=== PATIENT | female | born 1965 | race African-American/Black ===

== ENCOUNTER 2016-06-23 08:49 | Inpatient (IN) | payer MEDICARE, MEDICAID ==
[~2016-06-23] VITALS: Ht 144.8 cm; Wt 97.1 kg
[2016-06-23] MEDS ORDERED: METHYLPREDNISOLONE SOD SUCC 125 MG/2 ML VIAL IV STA (08:56)
[2016-06-23] MEDS ORDERED: MAGNESIUM 2 G PREMIX 50 ML IV STA (08:56)
[2016-06-23] MEDS ORDERED: IPRATROPIUM BROMIDE (0.02%) 0.5MG/2.5ML NEB HHN STA ×2 (08:56→12:44)
[2016-06-23] MEDS ORDERED: ALBUTEROL (0.083%) 2.5MG/3ML NEB HHN STA ×2 (08:56→12:44)
[2016-06-23 12:13] LABS: HEMATOCRIT. 25.8 % (36.0-48.0); MEAN CORPUSCULAR HEMOGLOBIN 21.7 pg (28.0-32.0); MEAN CORPUSCULAR HGB CONC 30.9 g/dL (31.0-37.0); MEAN CORPUSCULAR VOLUME 70.3 fL (81.0-99.0); MEAN PLATELET VOLUME 7.3 fl (7.4-10.4); RED BLOOD CELL COUNT 3.67 mill/uL (4.2-5.4); RED CELL DISTRIBUTION WIDTH 17.9 % (11.6-14.6); WHITE BLOOD COUNT 16.7 x1000/uL (4.5-11.0)
[2016-06-23 12:17] LABS: DIFFERENTIAL COMMENT 1
[2016-06-23 12:30] LABS: ALANINE AMINOTRANSFERASE 27 IU/L (13-61); ALBUMIN 3.3 g/dL (3.4-5.0); ANION GAP 15; CALCIUM 8.9 mg/dL (8.5-10.1); CARBON DIOXIDE 27 mEq/L (21-32); CHLORIDE 99 mEq/L (98-107); INDEX HEMOLYSI 2 (1-3); INDEX ICTERIC 1 (1-4); INDEX LIPEMIC 2 (1-3); TROPONIN I < 0.02 ng/mL (0.00-0.04); UREA NITROGEN BLOOD 14 mg/dL (7-21); eGFR 57 mL/min (>60)
[2016-06-23 12:49] LABS: PLATELET ESTIMATE INCREASED
[2016-06-23 12:55] LABS: GIANT PLATELETS FEW
[2016-06-23 12:57] LABS: PLATELET 624 x1000/uL (130-400)
[2016-06-23] MEDS ORDERED: IPRATROPIUM/ALBUTEROL 0.5-3(2.5)MG/3ML NEB INH PRN (16:30)
[2016-06-23] MEDS ORDERED: LORAZEPAM 2MG/ML CPJ IV PRN (16:30)
[2016-06-23] MEDS ORDERED: GUAIFENESIN 200MG/10ML SUGAR FREE UDC PO PRN (16:30)
[2016-06-23] MEDS ORDERED: DOCUSATE SODIUM 100MG CAPSULE PO PRN (16:30)
[2016-06-23] MEDS ORDERED: NITROGLYCERIN 0.4MG TABLET SL SL PRN (16:30)
[2016-06-23] MEDS ORDERED: NA PHOS,M-B/NA PHOS,DI-BA ENEMA 118ML PR PRN (16:30)
[2016-06-23] MEDS ORDERED: ZOLPIDEM TARTRATE 5MG TABLET PO PRN (16:30)
[2016-06-23] MEDS ORDERED: CLONIDINE 0.1MG TABLET PO PRN (16:30)
[2016-06-23] MEDS ORDERED: TRAMADOL 50MG TABLET PO PRN (16:30)
[2016-06-23] MEDS ORDERED: ONDANSETRON HCL 4MG/2ML VIAL IV PRN (16:30)
[2016-06-23] MEDS ORDERED: MAGNESIUM/ALUMINUM HYDROXIDE/SIMETHICONE 30ML UDC PO PRN (16:30)
[2016-06-23] MEDS ORDERED: MORPHINE SULFATE 2 MG/ML CPJ (NOT FOR IM USE) IV PRN (16:30)
[2016-06-23] MEDS ORDERED: DIPHENHYDRAMINE 50MG/ML VIAL IV PRN (16:30)
[2016-06-23] MEDS: IPRATROPIUM/ALBUTEROL 0.5-3(2.5)MG/3ML NEB HHN SCH ×2 (18:20→21:34)
[2016-06-23] MEDS ORDERED: KCL 20MEQ/100ML PREMIX 100 ML IV NR (20:00)
[2016-06-23] MEDS ORDERED: POTASSIUM CHLORIDE 20MEQ TABLET SR PO NR (20:00)
[2016-06-23] MEDS ORDERED: DEXTROSE 50% WATER 50ML SYRINGE IV PRN (20:00)
[2016-06-23 22:30] VITALS: BP 108/84
[2016-06-23] MEDS: BLOOD SUGAR DIAGNOSTIC STRIP TEST SCH (23:04)
[2016-06-23] MEDS: INSULIN LISPRO 100 UNITS/ML SUBCUT SCH (23:12)
[2016-06-23] MEDS: METHYLPREDNISOLONE SOD SUCC 125 MG/2 ML VIAL IV SCH (23:20)
[2016-06-23 23:35] VITALS: BP 108/84
[2016-06-24] MEDS: IPRATROPIUM/ALBUTEROL 0.5-3(2.5)MG/3ML NEB HHN SCH ×7 (00:05→23:54)
[2016-06-24] MEDS ORDERED: LEVOFLOXACIN 500MG PREMIX 100 ML IV SCH (01:00)
[2016-06-24] MEDS ORDERED: HYDR25TA PO (01:18)
[2016-06-24] MEDS ORDERED: INSLAN SQ (01:18)
[2016-06-24] MEDS ORDERED: LANS30CA10 PO (01:18)
[2016-06-24] MEDS ORDERED: BALS750C7 PO (01:18)
[2016-06-24] MEDS ORDERED: THEO80SO PO (01:18)
[2016-06-24] MEDS ORDERED: PROC10TA PO (01:18)
[2016-06-24] MEDS ORDERED: PRED-276 PO (01:18)
[2016-06-24] MEDS ORDERED: PRO AIR (01:18)
[2016-06-24] MEDS ORDERED: VALA500T PO (01:18)
[2016-06-24 02:44] LABS: CREATINE KINASE 354 IU/L (26-192); CREATINE KINASE MB FRACTION 3.8 ng/mL (0.5-3.6); INDEX HEMOLYSI 2 (1-3); INDEX ICTERIC 1 (1-4); INDEX LIPEMIC 1 (1-3); IRON 32 ug/dL (50-175); TOTAL IRON BINDING CAPACITY 586 ug/dL (250-450); TROPONIN I < 0.02 ng/mL (0.00-0.04)
[2016-06-24 02:54] LABS: INDEX HEMOLYSI 1 (1-3)
[2016-06-24 03:09] LABS: VITAMIN B12 SERUM 886 pg/mL (211-911)
[2016-06-24 04:00] VITALS: BP 107/69
[2016-06-24 04:21] LABS: FOLIC ACID (FOLATE) SERUM > 20.00 ng/mL (>5.38)
[2016-06-24] MEDS: ACETAMINOPHEN 325MG TABLET PO PRN (04:32)
[2016-06-24] MEDS: CARVEDILOL 3.125 MG TABLET PO SCH ×2 (06:00→18:00)
[2016-06-24] MEDS: BLOOD SUGAR DIAGNOSTIC STRIP TEST SCH ×4 (06:53→21:00)
[2016-06-24] MEDS: INSULIN LISPRO 100 UNITS/ML SUBCUT SCH ×4 (06:57→21:10)
[2016-06-24] MEDS: METHYLPREDNISOLONE SOD SUCC 125 MG/2 ML VIAL IV SCH (07:03)
[2016-06-24] MEDS ORDERED: BLOOD SUGAR DIAGNOSTIC STRIP TEST SCH (07:10)
[2016-06-24 08:00] VITALS: BP 120/74
[2016-06-24] MEDS: PANTOPRAZOLE SODIUM 40 MG/VIAL IV SCH (08:35)
[2016-06-24] MEDS: ZINC SULFATE 220 MG ( 50 ) CAPSULE PO SCH (08:35)
[2016-06-24] MEDS: ENOXAPARIN 30MG/0.3ML SYR SUBCUT SCH ×2 (08:37→21:11)
[2016-06-24 09:29] LABS: CREATINE KINASE 385 IU/L (26-192); CREATINE KINASE MB FRACTION 3.8 ng/mL (0.5-3.6); INDEX HEMOLYSI 1 (1-3); TROPONIN I < 0.02 ng/mL (0.00-0.04)
[2016-06-24 12:00] VITALS: BP 113/79
[2016-06-24 15:44] LABS: BASOPHILS % 0.2 % (0.0-2.0); DIFFERENTIAL COMMENT 0; HEMATOCRIT. 23.7 % (36.0-48.0); HEMOGLOBIN. 7.1 g/dL (12.0-16.0); MEAN CORPUSCULAR HEMOGLOBIN 21.2 pg (28.0-32.0); MEAN CORPUSCULAR HGB CONC 30.1 g/dL (31.0-37.0); MEAN CORPUSCULAR VOLUME 70.4 fL (81.0-99.0); MEAN PLATELET VOLUME 7.5 fl (7.4-10.4); MONOCYTES % 3.4 % (2.0-8.0); NEUTROPHILS % 87.4 % (40.0-76.0); PLATELET 636 x1000/uL (130-400); RED BLOOD CELL COUNT 3.37 mill/uL (4.2-5.4); WHITE BLOOD COUNT 18.3 x1000/uL (4.5-11.0)
[2016-06-24 16:00] VITALS: BP 108/72
[2016-06-24 16:00] LABS: LACTIC ACID 3.3 mmol/L (0.4-2.0)
[2016-06-24 16:04] LABS: ALANINE AMINOTRANSFERASE 25 IU/L (13-61); ALBUMIN 3.7 g/dL (3.4-5.0); ANION GAP 18; CARBON DIOXIDE 24 mEq/L (21-32); CHLORIDE 95 mEq/L (98-107); INDEX HEMOLYSI 1 (1-3); INDEX ICTERIC 1 (1-4); INDEX LIPEMIC 1 (1-3); NT PRO B-TYPE NATRIURETIC PEP 405 pg/mL (5-125); UREA NITROGEN BLOOD 29 mg/dL (7-21); eGFR 52 mL/min (>60)
[2016-06-24] MEDS: METHYLPREDNISOLONE SOD SUCC 40 MG/ML VIAL IV SCH (17:57)
[2016-06-24] MEDS: INSULIN NPH (HUMULIN-N) 100 UNITS/ML 3ML VIAL SUBCUT SCH (18:16)
[2016-06-24] MEDS ORDERED: VENOFER IV SCH ×2 (19:30→21:00)
[2016-06-24 20:00] VITALS: BP 110/78
[2016-06-24] MEDS: IRON SUCROSE COMPLEX 100 MG/5 ML ML IV SCH (21:12)
[2016-06-25] VITALS: BP 114/76
[2016-06-25] MEDS: LEVOFLOXACIN 500MG PREMIX 100 ML IV SCH (01:30)
[2016-06-25] MEDS: METHYLPREDNISOLONE SOD SUCC 40 MG/ML VIAL IV SCH ×3 (02:15→17:05)
[2016-06-25] MEDS: INSULIN NPH (HUMULIN-N) 100 UNITS/ML 3ML VIAL SUBCUT SCH ×3 (02:17→17:08)
[2016-06-25] MEDS: IPRATROPIUM/ALBUTEROL 0.5-3(2.5)MG/3ML NEB HHN SCH ×4 (03:56→21:54)
[2016-06-25 04:00] VITALS: BP 112/68
[2016-06-25] MEDS: ACETAMINOPHEN 325MG TABLET PO PRN ×2 (04:38→17:12)
[2016-06-25] MEDS: CARVEDILOL 3.125 MG TABLET PO SCH ×2 (05:45→17:06)
[2016-06-25] MEDS: BLOOD SUGAR DIAGNOSTIC STRIP TEST SCH ×4 (05:51→21:09)
[2016-06-25] MEDS: INSULIN LISPRO 100 UNITS/ML SUBCUT SCH ×4 (06:27→20:59)
[2016-06-25 08:00] VITALS: BP 106/72
[2016-06-25] MEDS: PANTOPRAZOLE SODIUM 40 MG/VIAL IV SCH (08:15)
[2016-06-25] MEDS: IRON SUCROSE COMPLEX 100 MG/5 ML ML IV SCH (08:15)
[2016-06-25] MEDS: ZINC SULFATE 220 MG ( 50 ) CAPSULE PO SCH (08:15)
[2016-06-25] MEDS: ENOXAPARIN 30MG/0.3ML SYR SUBCUT SCH ×2 (08:16→20:52)
[2016-06-25] MEDS ORDERED: PREDNISONE 20MG TABLET PO SCH (09:00)
[2016-06-25] MEDS ORDERED: INSULIN NPH (HUMULIN-N) 100 UNITS/ML 3ML VIAL SUBCUT NR (09:52)
[2016-06-25 12:00] VITALS: BP 105/67
[2016-06-25 16:00] VITALS: BP 117/80
[2016-06-25 20:00] VITALS: BP 114/76
[2016-06-26] VITALS: BP 115/81
[2016-06-26] MEDS: IPRATROPIUM/ALBUTEROL 0.5-3(2.5)MG/3ML NEB HHN SCH ×5 (00:15→17:20)
[2016-06-26] MEDS: METHYLPREDNISOLONE SOD SUCC 40 MG/ML VIAL IV SCH ×3 (01:40→17:04)
[2016-06-26] MEDS: INSULIN NPH (HUMULIN-N) 100 UNITS/ML 3ML VIAL SUBCUT SCH ×3 (01:49→17:02)
[2016-06-26] MEDS: LEVOFLOXACIN 500MG PREMIX 100 ML IV SCH (01:52)
[2016-06-26] MEDS: ACETAMINOPHEN 325MG TABLET PO PRN (02:02)
[2016-06-26 04:00] VITALS: BP 119/82
[2016-06-26] MEDS: CARVEDILOL 3.125 MG TABLET PO SCH ×2 (05:19→17:04)
[2016-06-26] MEDS: BLOOD SUGAR DIAGNOSTIC STRIP TEST SCH ×3 (06:30→17:00)
[2016-06-26] MEDS: INSULIN LISPRO 100 UNITS/ML SUBCUT SCH ×3 (06:49→17:03)
[2016-06-26 08:00] VITALS: BP 113/78
[2016-06-26] MEDS: ENOXAPARIN 30MG/0.3ML SYR SUBCUT SCH (08:25)
[2016-06-26] MEDS: PANTOPRAZOLE SODIUM 40 MG/VIAL IV SCH (08:25)
[2016-06-26] MEDS: ZINC SULFATE 220 MG ( 50 ) CAPSULE PO SCH (08:26)
[2016-06-26 09:47] LABS: HEMATOCRIT 24.7 % (36.0-48.0); PLATELET 829 x1000/uL (130-400); RED BLOOD CELL COUNT 3.48 mill/uL (4.2-5.4); RED CELL DISTRIBUTION WIDTH 18.2 % (11.6-14.6)
[2016-06-26 10:43] LABS: HEMOGLOBIN 7.3 g/dL (12.0-16.0)
[2016-06-26 12:00] VITALS: BP 115/75
[2016-06-26] MEDS ORDERED: IRON SUCROSE COMPLEX 100 MG/5 ML ML IV SCH (12:30)
[2016-06-26 15:47] VITALS: BP 119/78
[2016-06-26 15:54] VITALS: BP 119/80
[2016-06-27] MEDS ORDERED: FAMOTIDINE 20MG TABLET PO SCH (09:00)
== END 2016-06-26 18:10 | disposition home or self-care (01) | DRG 189 ==
LOC: ER 08:54 → 8WST 13:37 → SUPCPDRO 15:45
PROVIDERS: ADMIT Internal Medicine; ATTEND Internal Medicine
DX: J96.00 Acute respiratory failure, unspecified whether with hypoxia or hypercapnia (principal); J44.1 Chronic obstructive pulmonary disease with (acute) exacerbation; K50.90 Crohn's disease, unspecified, without complications; K51.90 Ulcerative colitis, unspecified, without complications; E44.1 Mild protein-calorie malnutrition; E66.2 Morbid (severe) obesity with alveolar hypoventilation; J45.901 Unspecified asthma with (acute) exacerbation; Z68.42 Body mass index [BMI] 45.0-49.9, adult; D50.9 Iron deficiency anemia, unspecified; D72.829 Elevated white blood cell count, unspecified; E11.65 Type 2 diabetes mellitus with hyperglycemia; E87.6 Hypokalemia; G43.909 Migraine, unspecified, not intractable, without status migrainosus; G47.33 Obstructive sleep apnea (adult) (pediatric); I50.9 Heart failure, unspecified; M06.9 Rheumatoid arthritis, unspecified; L83 Acanthosis nigricans; M10.9 Gout, unspecified; M48.00 Spinal stenosis, site unspecified; Z79.4 Long term (current) use of insulin; Z79.52 Long term (current) use of systemic steroids; Z82.5 Family history of asthma and other chronic lower respiratory diseases; Z90.10 Acquired absence of unspecified breast and nipple; Z85.3 Personal history of malignant neoplasm of breast; Z91.011 Allergy to milk products; Z91.013 Allergy to seafood; Z91.018 Allergy to other foods
CPT/HCPCS: 36415; 71010; 80053; 80061; 82270; 82550; 82553; 82607; 82746; 82962; 83036; 83540; 83550; 83605; 83880; 84484; 85025; 85027; 93005; 93306; 93970; 94640; 94644; 94660; 96365; 96366; 96375; 99285; C9113; J1650; J1815; J1956; J2920; J2930; J3475; J3480; J7040; J7050; J7611; J7620

== ENCOUNTER 2017-11-15 19:05 | Inpatient (IN) | payer MEDICARE, MEDICAID ==
[~2017-11-15] VITALS: Ht 165.1 cm; Wt 102.1 kg
[~2017-11-15 19:05] MED LIST: BALS750C7 PO; HYDR25TA PO; INSLAN SQ; LANS30CA52 PO; PRED-276 PO; PRO AIR; PROC10TA17 PO; THEO80EL3 PO; VALA500T PO
[2017-11-15] MEDS ORDERED: ALBUTEROL (0.083%) 2.5MG/3ML NEB HHN STA ×3 (19:25→21:21)
[2017-11-15] MEDS ORDERED: IPRATROPIUM BROMIDE (0.02%) 0.5MG/2.5ML NEB HHN STA (19:25)
[2017-11-15] MEDS ORDERED: METHYLPREDNISOLONE SOD SUCC 125 MG/2 ML VIAL IV ONE (19:30)
[2017-11-15] MEDS: NITROGLYCERIN 0.4MG TABLET SL SL PRN ×2 (21:21→21:55)
[2017-11-15 22:53] LABS: BG BASE EXCESS -4.2 mmol/L (-2.0-2.0); BG CARBOXYHEMOGLOBIN 0.1 % (0.5-1.5); BG FRACTION INSPIRED OXYGEN 36; BG HCO3 ACT 20.3 mmol/L (22.0-26.0); BG METHEMOGLOBIN 0.3 % (0.0-1.5); BG OXYHEMOGLOBIN 90.6 % (94.0-97.0); BG PCO2 35.3 mmHg (35.0-45.0); BG PH 7.378 (7.350-7.450); BG PO2 62.4 mmHg (75.0-100.0); BG SAMPLE SITE RIGHT RADIAL; BG TOTAL HEMOGLOBIN 10.7 g/dL (12.0-18.0); BG VENT MODE NASAL CANNULA
[2017-11-15 23:09] LABS: CLARITY URINE CLEAR (CLEAR); COLOR URINE YELLOW (YELLOW); KETONES URINE TRACE (NEGATIVE); LEUKOCYTE ESTERASE URINE NEGATIVE (NEGATIVE); NITRITE URINE NEGATIVE (NEGATIVE); OCCULT BLOOD URINE TRACE (NEGATIVE); PH URINE 5.5 (4.5-8.0); PROTEIN URINE 4+ (NEGATIVE); SPECIFIC GRAVITY URINE 1.018 (1.005-1.030)
[2017-11-15] MEDS ORDERED: LIDOCAINE HCL/PF 1% 10 MG/ML 5ML VIAL ONE (23:36)
[2017-11-16] VITALS (23 sets, daily range): BP systolic 95–129; BP diastolic 55–83
[2017-11-16 00:10] LABS: CHLORIDE 106 mEq/L (98-107)
[2017-11-16 00:13] LABS: PROTHROMBIN TIME 10.3 sec (9.4-11.6)
[2017-11-16] MEDS ORDERED: SUCCINYLCHOLINE CHLORIDE 200MG/10ML VIAL IV ONE ×2 (00:30→13:58)
[2017-11-16] MEDS ORDERED: ETOMIDATE 2MG/ML 10ML VIAL IV ONE ×2 (00:30→13:58)
[2017-11-16] MEDS ORDERED: PROPOFOL 10MG/ML 100ML 100 ML IV ONE ×2 (00:30→00:35)
[2017-11-16] MEDS ORDERED: FENTANYL CITRATE/PF 50MCG/ML 2ML VIAL IV ONE (01:30)
[2017-11-16] MEDS ORDERED: VANCOMYCIN 1 G PREMIX 200 ML IV NR (01:30)
[2017-11-16] MEDS ORDERED: PIPERACILLIN/TAZ 3.375G PREMIX 50 ML IV NR (01:30)
[2017-11-16] MEDS ORDERED: MAGNESIUM 2 G PREMIX 50 ML IV NR (01:30)
[2017-11-16] MEDS ORDERED: MIDAZOLAM HCL 50 MG in DEXTROSE 5% WATER 40 ML IV ONE (01:30)
[2017-11-16 01:33] LABS: HEMATOCRIT. 28.6 % (36.0-48.0); MEAN CORPUSCULAR HEMOGLOBIN 27.3 pg (28.0-32.0); PLATELET 357 x1000/uL (130-400); RED BLOOD CELL COUNT 3.67 mill/uL (4.2-5.4); RED CELL DISTRIBUTION WIDTH 21.9 % (11.6-14.6)
[2017-11-16 01:49] LABS: PLATELET ESTIMATE NORMAL
[2017-11-16] MEDS ORDERED: PROPOFOL 10MG/ML 100ML 100 ML IV PRN (05:00)
[2017-11-16] MEDS ORDERED: POTASSIUM CHLORIDE INJ 40 MEQ in DEXT 5% WATER 250 ML IV NR (05:15)
[2017-11-16] MEDS ORDERED: ONDANSETRON HCL 4MG/2ML VIAL IV PRN (08:30)
[2017-11-16] MEDS ORDERED: IPRATROPIUM/ALBUTEROL 0.5-3(2.5)MG/3ML NEB INH PRN (08:30)
[2017-11-16] MEDS ORDERED: ACETAMINOPHEN 325MG TABLET NG PRN (08:30)
[2017-11-16] MEDS ORDERED: VANCOMYCIN 1 G PREMIX 200 ML IV SCH (08:30)
[2017-11-16] MEDS ORDERED: PIPERACILLIN/TAZ 3.375G PREMIX 50 ML IV SCH (08:30)
[2017-11-16] MEDS ORDERED: DIPHENHYDRAMINE 50MG/ML VIAL IV PRN (08:30)
[2017-11-16] MEDS ORDERED: DEXTROSE 50% WATER 50ML SYRINGE IV PRN (08:30)
[2017-11-16] MEDS: INSULIN LISPRO 100 UNITS/ML SUBCUT SCH ×4 (09:00→20:00)
[2017-11-16] MEDS: BLOOD SUGAR DIAGNOSTIC STRIP TEST SCH ×5 (09:00→23:27)
[2017-11-16 09:56] LABS: HEMOGLOBIN. 9.6 g/dL (12.0-16.0); MEAN CORPUSCULAR HEMOGLOBIN 27.4 pg (28.0-32.0); MEAN CORPUSCULAR VOLUME 79.9 fL (81.0-99.0); PLATELET 380 x1000/uL (130-400); RED CELL DISTRIBUTION WIDTH 22.4 % (11.6-14.6)
[2017-11-16] MEDS ORDERED: INSULIN GLARGINE UD 100 UNITS/ML SYR SUBCUT SCH ×3 (10:00→22:00)
[2017-11-16 10:10] LABS: BG BASE EXCESS -6.7 mmol/L (-2.0-2.0); BG CARBOXYHEMOGLOBIN 0.3 % (0.5-1.5); BG DEOXYHEMOGLOBIN 0.2 % (0.0-5.0); BG FRACTION INSPIRED OXYGEN 100; BG HCO3 ACT 18.9 mmol/L (22.0-26.0); BG METHEMOGLOBIN 0.3 % (0.0-1.5); BG OXYGEN SATURATION 99.8 % (92.0-98.5); BG OXYHEMOGLOBIN 99.2 % (94.0-97.0); BG PCO2 38.4 mmHg (35.0-45.0); BG PH 7.311 (7.350-7.450); BG PO2 508.1 mmHg (75.0-100.0); BG SAMPLE SITE RIGHT RADIAL; BG TIDAL VOLUME(mL) 500 mL; BG VENT MODE VENT - A/C; BG VENT RATE 14 set
[2017-11-16 10:28] LABS: PLATELET ESTIMATE NORMAL
[2017-11-16] MEDS ORDERED: IPRATROPIUM/ALBUTEROL 0.5-3(2.5)MG/3ML NEB HHN PRN (10:30)
[2017-11-16] MEDS ORDERED: KCL 20MEQ/100ML PREMIX 100 ML IV SCH (11:00)
[2017-11-16 11:26] LABS: PHOSPHORUS 2.9 mg/dL (2.5-4.9)
[2017-11-16] MEDS: PIPERACILLIN/TAZ 3.375G PREMIX 50 ML IV SCH ×2 (11:45→20:01)
[2017-11-16] MEDS: VANCOMYCIN 1 G PREMIX 200 ML IV SCH (11:45)
[2017-11-16] MEDS: LORATADINE 10MG TABLET NG SCH (11:48)
[2017-11-16] MEDS: METHYLPREDNISOLONE SOD SUCC 40 MG/ML VIAL IV SCH ×2 (11:49→18:22)
[2017-11-16] MEDS: SODIUM CHLORIDE 0.9% 1,000 ML IV SCH ×2 (11:50→20:39)
[2017-11-16] MEDS: IPRATROPIUM/ALBUTEROL 0.5-3(2.5)MG/3ML NEB HHN SCH ×3 (12:12→20:24)
[2017-11-16] MEDS: BUDESONIDE 0.5MG/2ML NEB HHN SCH (12:12)
[2017-11-16] MEDS: THEOPHYLLINE ANHYDROUS 80 MG/15 ML 120ML PO SCH ×3 (13:00→20:42)
[2017-11-16] MEDS ORDERED: INSULIN LISPRO 100 UNITS/ML SUBCUT NR (13:30)
[2017-11-16] MEDS ORDERED: NORMAL SALINE 0.9% 10 ML SYR ONE (13:58)
[2017-11-16] MEDS: FENTANYL CITRATE/PF 500 MCG in SODIUM CHLORIDE 0.9% 40 ML IV PRN ×2 (14:06→20:29)
[2017-11-16] MEDS: PROPOFOL 10MG/ML 100ML 100 ML IV PRN ×4 (15:13→23:26)
[2017-11-16] MEDS: MONTELUKAST SODIUM 10MG TABLET NG SCH (18:22)
[2017-11-16] MEDS: FAMOTIDINE 20MG/2ML VIAL IV SCH (20:38)
[2017-11-17] VITALS (37 sets, daily range): BP systolic 92–142; BP diastolic 56–92
[2017-11-17] MEDS: BUDESONIDE 0.5MG/2ML NEB HHN SCH ×3 (00:11→20:33)
[2017-11-17] MEDS: IPRATROPIUM/ALBUTEROL 0.5-3(2.5)MG/3ML NEB HHN SCH ×5 (00:11→20:18)
[2017-11-17] MEDS: METHYLPREDNISOLONE SOD SUCC 40 MG/ML VIAL IV SCH ×3 (01:54→20:41)
[2017-11-17] MEDS: PIPERACILLIN/TAZ 3.375G PREMIX 50 ML IV SCH ×3 (01:54→17:33)
[2017-11-17] MEDS: FENTANYL CITRATE/PF 500 MCG in SODIUM CHLORIDE 0.9% 40 ML IV PRN ×4 (02:46→22:56)
[2017-11-17] MEDS: PROPOFOL 10MG/ML 100ML 100 ML IV PRN ×2 (02:51→07:11)
[2017-11-17] MEDS: BLOOD SUGAR DIAGNOSTIC STRIP TEST SCH ×6 (04:49→23:51)
[2017-11-17] MEDS: INSULIN LISPRO 100 UNITS/ML SUBCUT SCH ×6 (04:53→23:54)
[2017-11-17] MEDS: SODIUM CHLORIDE 0.9% 1,000 ML IV SCH ×2 (04:54→13:26)
[2017-11-17 08:06] LABS: BG BASE EXCESS -4.4 mmol/L (-2.0-2.0); BG CARBOXYHEMOGLOBIN 0.3 % (0.5-1.5); BG DEOXYHEMOGLOBIN 1.4 % (0.0-5.0); BG FRACTION INSPIRED OXYGEN 40; BG HCO3 ACT 22.2 mmol/L (22.0-26.0); BG METHEMOGLOBIN 0.2 % (0.0-1.5); BG OXYGEN SATURATION 98.6 % (92.0-98.5); BG OXYHEMOGLOBIN 98.1 % (94.0-97.0); BG PCO2 47.9 mmHg (35.0-45.0); BG PH 7.284 (7.350-7.450); BG PO2 150.3 mmHg (75.0-100.0); BG SAMPLE SITE RIGHT RADIAL; BG TIDAL VOLUME(mL) 500 mL; BG VENT MODE VENT - A/C; BG VENT RATE 14 set
[2017-11-17] MEDS: VANCOMYCIN 1 G PREMIX 200 ML IV SCH (08:33)
[2017-11-17] MEDS: THEOPHYLLINE ANHYDROUS 80 MG/15 ML 120ML PO SCH ×4 (08:36→20:43)
[2017-11-17] MEDS: LORATADINE 10MG TABLET NG SCH (08:36)
[2017-11-17] MEDS: MIDAZOLAM HCL 50 MG in DEXTROSE 5% WATER 40 ML IV PRN ×3 (10:26→22:56)
[2017-11-17 15:15] LABS: HEMATOCRIT. 25.1 % (36.0-48.0); HEMOGLOBIN. 8.2 g/dL (12.0-16.0); MEAN CORPUSCULAR HEMOGLOBIN 26.1 pg (28.0-32.0); MEAN CORPUSCULAR VOLUME 80.2 fL (81.0-99.0); MEAN PLATELET VOLUME 8.8 fl (7.4-10.4); PLATELET 365 x1000/uL (130-400); RED BLOOD CELL COUNT 3.13 mill/uL (4.2-5.4); RED CELL DISTRIBUTION WIDTH 22.5 % (11.6-14.6)
[2017-11-17] MEDS ORDERED: HYDROCODONE/ACETAMINOPHEN 10/325MG TABLET PO PRN (15:45)
[2017-11-17 16:20] LABS: PLATELET ESTIMATE NORMAL
[2017-11-17] MEDS: MONTELUKAST SODIUM 10MG TABLET NG SCH (16:52)
[2017-11-17] MEDS: FAMOTIDINE 20MG/2ML VIAL IV SCH (20:41)
[2017-11-17] MEDS: INSULIN GLARGINE UD 100 UNITS/ML SYR SUBCUT SCH (21:26)
[2017-11-17] MEDS: LORAZEPAM 2MG/ML CPJ IV PRN (21:27)
[2017-11-18] VITALS (52 sets, daily range): BP systolic 108–194; BP diastolic 75–135
[2017-11-18] MEDS: IPRATROPIUM/ALBUTEROL 0.5-3(2.5)MG/3ML NEB HHN SCH ×6 (00:23→21:38)
[2017-11-18] MEDS: SODIUM CHLORIDE 0.9% 1,000 ML IV SCH ×3 (01:47→20:44)
[2017-11-18] MEDS: PIPERACILLIN/TAZ 3.375G PREMIX 50 ML IV SCH ×3 (01:47→17:39)
[2017-11-18] MEDS: BLOOD SUGAR DIAGNOSTIC STRIP TEST SCH ×6 (04:46→23:40)
[2017-11-18] MEDS: INSULIN LISPRO 100 UNITS/ML SUBCUT SCH ×6 (04:49→23:49)
[2017-11-18] MEDS: MIDAZOLAM HCL 50 MG in DEXTROSE 5% WATER 40 ML IV PRN ×4 (06:03→23:48)
[2017-11-18] MEDS: FENTANYL CITRATE/PF 500 MCG in SODIUM CHLORIDE 0.9% 40 ML IV PRN ×4 (06:03→23:47)
[2017-11-18 07:51] LABS: HEMATOCRIT. 23.7 % (36.0-48.0); HEMOGLOBIN. 7.7 g/dL (12.0-16.0); MEAN CORPUSCULAR HEMOGLOBIN 25.8 pg (28.0-32.0); MEAN CORPUSCULAR VOLUME 79.5 fL (81.0-99.0); MEAN PLATELET VOLUME 8.6 fl (7.4-10.4); PLATELET 346 x1000/uL (130-400); RED BLOOD CELL COUNT 2.99 mill/uL (4.2-5.4); RED CELL DISTRIBUTION WIDTH 22.4 % (11.6-14.6)
[2017-11-18] MEDS: BUDESONIDE 0.5MG/2ML NEB HHN SCH ×2 (07:57→21:39)
[2017-11-18] MEDS: METHYLPREDNISOLONE SOD SUCC 40 MG/ML VIAL IV SCH ×2 (08:16→20:41)
[2017-11-18] MEDS: LORATADINE 10MG TABLET NG SCH (08:16)
[2017-11-18] MEDS: VANCOMYCIN 1 G PREMIX 200 ML IV SCH (08:17)
[2017-11-18] MEDS: THEOPHYLLINE ANHYDROUS 80 MG/15 ML 120ML PO SCH ×4 (08:19→20:42)
[2017-11-18 11:26] LABS: BG BASE EXCESS -5.1 mmol/L (-2.0-2.0); BG CARBOXYHEMOGLOBIN 0.6 % (0.5-1.5); BG DEOXYHEMOGLOBIN 0.1 % (0.0-5.0); BG FRACTION INSPIRED OXYGEN 100; BG HCO3 ACT 20.5 mmol/L (22.0-26.0); BG METHEMOGLOBIN 0.4 % (0.0-1.5); BG OXYGEN SATURATION 99.9 % (92.0-98.5); BG OXYHEMOGLOBIN 98.9 % (94.0-97.0); BG PCO2 40.3 mmHg (35.0-45.0); BG PH 7.324 (7.350-7.450); BG PO2 495.3 mmHg (75.0-100.0); BG SAMPLE SITE LEFT BRACHIAL; BG TIDAL VOLUME(mL) 550 mL; BG TOTAL HEMOGLOBIN 9.1 g/dL (12.0-18.0); BG VENT MODE VENT - A/C; BG VENT RATE 16 set
[2017-11-18 11:28] LABS: BG CARBOXYHEMOGLOBIN 0.6 % (0.5-1.5); BG DEOXYHEMOGLOBIN 0.6 % (0.0-5.0); BG FRACTION INSPIRED OXYGEN 40; BG HCO3 ACT 23.2 mmol/L (22.0-26.0); BG METHEMOGLOBIN 0.1 % (0.0-1.5); BG OXYGEN SATURATION 99.4 % (92.0-98.5); BG OXYHEMOGLOBIN 98.7 % (94.0-97.0); BG PCO2 41.6 mmHg (35.0-45.0); BG PH 7.364 (7.350-7.450); BG PO2 182.9 mmHg (75.0-100.0); BG SAMPLE SITE LEFT BRACHIAL; BG TIDAL VOLUME(mL) 550 mL; BG VENT MODE VENT - A/C; BG VENT RATE 16 set
[2017-11-18] MEDS: INSULIN GLARGINE UD 100 UNITS/ML SYR SUBCUT SCH ×2 (12:21→21:54)
[2017-11-18] MEDS: LORAZEPAM 2MG/ML CPJ IV PRN (13:11)
[2017-11-18 13:22] LABS: PLATELET ESTIMATE NORMAL
[2017-11-18] MEDS ORDERED: MAGNESIUM 2 G PREMIX 50 ML IV NR (14:00)
[2017-11-18 16:23] LABS: PHOSPHORUS 3.7 mg/dL (2.5-4.9)
[2017-11-18] MEDS: MONTELUKAST SODIUM 10MG TABLET NG SCH (16:30)
[2017-11-18] MEDS: FAMOTIDINE 20MG/2ML VIAL IV SCH (20:41)
[2017-11-18] MEDS: AMLODIPINE 2.5MG TABLET NG SCH (20:42)
[2017-11-19] VITALS (65 sets, daily range): BP systolic 122–177; BP diastolic 76–120
[2017-11-19] MEDS: IPRATROPIUM/ALBUTEROL 0.5-3(2.5)MG/3ML NEB HHN SCH ×6 (00:48→20:24)
[2017-11-19] MEDS: ACETAMINOPHEN 650MG/20.3ML UDC NG PRN (00:58)
[2017-11-19] MEDS: PIPERACILLIN/TAZ 3.375G PREMIX 50 ML IV SCH ×3 (01:04→17:44)
[2017-11-19] MEDS: LORAZEPAM 2MG/ML CPJ IV PRN ×4 (02:01→17:45)
[2017-11-19] MEDS: BLOOD SUGAR DIAGNOSTIC STRIP TEST SCH ×5 (04:06→20:00)
[2017-11-19] MEDS: MIDAZOLAM HCL 50 MG in DEXTROSE 5% WATER 40 ML IV PRN ×6 (04:10→21:09)
[2017-11-19] MEDS: FENTANYL CITRATE/PF 500 MCG in SODIUM CHLORIDE 0.9% 40 ML IV PRN ×5 (04:11→21:53)
[2017-11-19] MEDS: INSULIN LISPRO 100 UNITS/ML SUBCUT SCH ×5 (04:13→20:10)
[2017-11-19 05:23] LABS: HEMATOCRIT. 21.9 % (36.0-48.0); HEMOGLOBIN. 7.2 g/dL (12.0-16.0); MEAN CORPUSCULAR HEMOGLOBIN 26.2 pg (28.0-32.0); MEAN CORPUSCULAR VOLUME 79.8 fL (81.0-99.0); MEAN PLATELET VOLUME 8.4 fl (7.4-10.4); PLATELET 323 x1000/uL (130-400); RED BLOOD CELL COUNT 2.75 mill/uL (4.2-5.4); RED CELL DISTRIBUTION WIDTH 22.2 % (11.6-14.6)
[2017-11-19] MEDS: SODIUM CHLORIDE 0.9% 1,000 ML IV SCH (07:13)
[2017-11-19 07:18] LABS: PHOSPHORUS 3.7 mg/dL (2.5-4.9)
[2017-11-19] MEDS ORDERED: POTASSIUM CHLORIDE 20MEQ/PACKET PO NR (08:00)
[2017-11-19] MEDS: BUDESONIDE 0.5MG/2ML NEB HHN SCH (08:38)
[2017-11-19] MEDS: FAMOTIDINE 20MG/2ML VIAL IV SCH ×2 (08:53→20:10)
[2017-11-19] MEDS: LORATADINE 10MG TABLET NG SCH (08:53)
[2017-11-19] MEDS: METHYLPREDNISOLONE SOD SUCC 40 MG/ML VIAL IV SCH ×2 (08:54→20:10)
[2017-11-19] MEDS: AMLODIPINE 2.5MG TABLET NG SCH ×2 (08:56→17:44)
[2017-11-19] MEDS: VANCOMYCIN 1 G PREMIX 200 ML IV SCH (08:56)
[2017-11-19 09:11] LABS: BG BASE EXCESS -2.8 mmol/L (-2.0-2.0); BG CARBOXYHEMOGLOBIN 0.7 % (0.5-1.5); BG FRACTION INSPIRED OXYGEN 40; BG HCO3 ACT 21.4 mmol/L (22.0-26.0); BG METHEMOGLOBIN 0.2 % (0.0-1.5); BG OXYHEMOGLOBIN 98.1 % (94.0-97.0); BG PCO2 34.2 mmHg (35.0-45.0); BG PH 7.415 (7.350-7.450); BG PO2 169.8 mmHg (75.0-100.0); BG SAMPLE SITE LEFT BRACHIAL; BG TIDAL VOLUME(mL) 550 mL; BG TOTAL HEMOGLOBIN 7.4 g/dL (12.0-18.0); BG VENT MODE VENT - A/C; BG VENT RATE 16 set
[2017-11-19 10:16] LABS: PLATELET ESTIMATE NORMAL
[2017-11-19] MEDS: THEOPHYLLINE ANHYDROUS 80 MG/15 ML 120ML PO SCH ×4 (10:49→20:10)
[2017-11-19] MEDS: INSULIN GLARGINE UD 100 UNITS/ML SYR SUBCUT SCH ×2 (10:52→22:08)
[2017-11-19] MEDS: METOCLOPRAMIDE HCL 10MG/2ML VIAL IV SCH ×2 (12:27→17:45)
[2017-11-19] MEDS: MONTELUKAST SODIUM 10MG TABLET NG SCH (17:09)
[2017-11-19] MEDS: HYDRALAZINE 20MG/ML VIAL IV PRN (17:44)
[2017-11-20] VITALS (43 sets, daily range): BP systolic 92–170; BP diastolic 16–124
[2017-11-20] MEDS: METOCLOPRAMIDE HCL 10MG/2ML VIAL IV SCH ×5 (00:11→23:53)
[2017-11-20] MEDS: LORAZEPAM 2MG/ML CPJ IV PRN ×2 (00:12→06:57)
[2017-11-20] MEDS: AMLODIPINE 2.5MG TABLET NG SCH ×5 (00:12→23:54)
[2017-11-20] MEDS: HYDRALAZINE 20MG/ML VIAL IV PRN ×2 (00:17→12:10)
[2017-11-20] MEDS: IPRATROPIUM/ALBUTEROL 0.5-3(2.5)MG/3ML NEB HHN SCH ×6 (00:19→20:04)
[2017-11-20] MEDS: INSULIN LISPRO 100 UNITS/ML SUBCUT SCH ×6 (00:29→20:00)
[2017-11-20] MEDS: BLOOD SUGAR DIAGNOSTIC STRIP TEST SCH ×6 (00:30→20:26)
[2017-11-20] MEDS: MIDAZOLAM HCL 50 MG in DEXTROSE 5% WATER 40 ML IV PRN ×2 (01:22→09:30)
[2017-11-20] MEDS: FENTANYL CITRATE/PF 500 MCG in SODIUM CHLORIDE 0.9% 40 ML IV PRN ×2 (01:24→08:27)
[2017-11-20] MEDS: PIPERACILLIN/TAZ 3.375G PREMIX 50 ML IV SCH ×2 (02:25→11:41)
[2017-11-20] MEDS: VANCOMYCIN 1 G PREMIX 200 ML IV SCH (04:22)
[2017-11-20 05:57] LABS: BASOPHILS % 1.3 % (0.0-2.0); EOSINOPHILS % 0.7 % (0.0-5.0); HEMATOCRIT. 27.5 % (36.0-48.0); LYMPHOCYTES % 21.4 % (20.0-50.0); MEAN CORPUSCULAR HEMOGLOBIN 26.5 pg (28.0-32.0); MEAN CORPUSCULAR VOLUME 80.9 fL (81.0-99.0); MEAN PLATELET VOLUME 8.8 fl (7.4-10.4); MONOCYTES % 8.1 % (2.0-8.0); NEUTROPHILS % 68.5 % (40.0-76.0); PLATELET 273 x1000/uL (130-400); RED CELL DISTRIBUTION WIDTH 21.6 % (11.6-14.6)
[2017-11-20 07:13] LABS: BG BASE EXCESS -3.1 mmol/L (-2.0-2.0); BG CARBOXYHEMOGLOBIN 0.3 % (0.5-1.5); BG DEOXYHEMOGLOBIN 1.2 % (0.0-5.0); BG FRACTION INSPIRED OXYGEN 40; BG HCO3 ACT 21.2 mmol/L (22.0-26.0); BG METHEMOGLOBIN 0.3 % (0.0-1.5); BG OXYGEN SATURATION 98.8 % (92.0-98.5); BG OXYHEMOGLOBIN 98.2 % (94.0-97.0); BG PH 7.401 (7.350-7.450); BG PO2 174.3 mmHg (75.0-100.0); BG SAMPLE SITE LEFT BRACHIAL; BG TIDAL VOLUME(mL) 550 mL; BG TOTAL HEMOGLOBIN 8.2 g/dL (12.0-18.0); BG VENT MODE VENT - A/C; BG VENT RATE 16 set
[2017-11-20] MEDS: FAMOTIDINE 20MG/2ML VIAL IV SCH ×2 (08:18→21:46)
[2017-11-20] MEDS: METHYLPREDNISOLONE SOD SUCC 40 MG/ML VIAL IV SCH ×2 (08:18→21:46)
[2017-11-20] MEDS: LORATADINE 10MG TABLET NG SCH (08:18)
[2017-11-20] MEDS: THEOPHYLLINE ANHYDROUS 80 MG/15 ML 120ML PO SCH ×4 (08:19→21:47)
[2017-11-20] MEDS ORDERED: FENTANYL CITRATE/PF 1,000 MCG in SODIUM CHLORIDE 0.9% 80 ML IV PRN (11:15)
[2017-11-20] MEDS: DIPHENHYDRAMINE 50MG/ML VIAL IV PRN ×2 (11:42→16:15)
[2017-11-20] MEDS: MORPHINE SULFATE 4 MG/ML CPJ (NOT FOR IM USE) IV PRN ×2 (11:42→15:04)
[2017-11-20] MEDS: INSULIN GLARGINE UD 100 UNITS/ML SYR SUBCUT SCH ×2 (12:12→21:48)
[2017-11-20] MEDS ORDERED: MIDAZOLAM HCL 100 MG in DEXTROSE 5% WATER 80 ML IV PRN (12:30)
[2017-11-20] MEDS: FENTANYL CITRATE/PF 1,000 MCG in SODIUM CHLORIDE 0.9% 80 ML IV PRN ×2 (13:06→20:47)
[2017-11-20] MEDS: MIDAZOLAM HCL 100 MG in DEXT 5% WATER 80 ML IV PRN (13:32)
[2017-11-20] MEDS ORDERED: POTASSIUM CHLORIDE 20MEQ/PACKET PO NR (13:45)
[2017-11-20] MEDS: CEFTRIAXONE 1 G PREMIX 50 ML IV SCH (16:15)
[2017-11-20] MEDS: MONTELUKAST SODIUM 10MG TABLET NG SCH (17:40)
[2017-11-21] VITALS (37 sets, daily range): BP systolic 110–182; BP diastolic 65–112
[2017-11-21] MEDS: BLOOD SUGAR DIAGNOSTIC STRIP TEST SCH ×6 (00:08→20:36)
[2017-11-21] MEDS: INSULIN LISPRO 100 UNITS/ML SUBCUT SCH ×6 (00:12→20:00)
[2017-11-21] MEDS: IPRATROPIUM/ALBUTEROL 0.5-3(2.5)MG/3ML NEB HHN SCH ×6 (00:23→19:53)
[2017-11-21] MEDS: MIDAZOLAM HCL 100 MG in DEXT 5% WATER 80 ML IV PRN ×3 (00:45→23:46)
[2017-11-21 05:49] LABS: EOSINOPHILS % 0.2 % (0.0-5.0); HEMATOCRIT. 27.5 % (36.0-48.0); HEMOGLOBIN. 8.9 g/dL (12.0-16.0); MEAN CORPUSCULAR HEMOGLOBIN 26.3 pg (28.0-32.0); MEAN CORPUSCULAR VOLUME 81.4 fL (81.0-99.0); MEAN PLATELET VOLUME 8.6 fl (7.4-10.4); MONOCYTES % 6.4 % (2.0-8.0); NEUTROPHILS % 78.4 % (40.0-76.0); PLATELET 305 x1000/uL (130-400); RED BLOOD CELL COUNT 3.37 mill/uL (4.2-5.4); RED CELL DISTRIBUTION WIDTH 21.9 % (11.6-14.6)
[2017-11-21] MEDS: METOCLOPRAMIDE HCL 10MG/2ML VIAL IV SCH ×4 (06:32→23:47)
[2017-11-21] MEDS: AMLODIPINE 2.5MG TABLET NG SCH ×4 (06:33→23:47)
[2017-11-21] MEDS: FENTANYL CITRATE/PF 1,000 MCG in SODIUM CHLORIDE 0.9% 80 ML IV PRN (07:09)
[2017-11-21] MEDS: FAMOTIDINE 20MG/2ML VIAL IV SCH ×2 (08:18→20:52)
[2017-11-21] MEDS: METHYLPREDNISOLONE SOD SUCC 40 MG/ML VIAL IV SCH (08:18)
[2017-11-21] MEDS: DIPHENHYDRAMINE 50MG/ML VIAL IV PRN ×4 (08:18→23:46)
[2017-11-21] MEDS: THEOPHYLLINE ANHYDROUS 80 MG/15 ML 120ML PO SCH ×4 (08:19→20:52)
[2017-11-21 08:27] LABS: BG BASE EXCESS -3.4 mmol/L (-2.0-2.0); BG CARBOXYHEMOGLOBIN 0.3 % (0.5-1.5); BG DEOXYHEMOGLOBIN 1.3 % (0.0-5.0); BG FRACTION INSPIRED OXYGEN 30; BG HCO3 ACT 21.5 mmol/L (22.0-26.0); BG METHEMOGLOBIN 0.3 % (0.0-1.5); BG OXYGEN SATURATION 98.7 % (92.0-98.5); BG OXYHEMOGLOBIN 98.1 % (94.0-97.0); BG PCO2 38.2 mmHg (35.0-45.0); BG PH 7.369 (7.350-7.450); BG PO2 144.3 mmHg (75.0-100.0); BG SAMPLE SITE LEFT RADIAL; BG TIDAL VOLUME(mL) 550 mL; BG TOTAL HEMOGLOBIN 9.5 g/dL (12.0-18.0); BG VENT MODE VENT - A/C; BG VENT RATE 16 set
[2017-11-21] MEDS: LORATADINE 10MG TABLET NG SCH (09:17)
[2017-11-21] MEDS ORDERED: MAGNESIUM 4 G PREMIX 100 ML IV NR (09:30)
[2017-11-21] MEDS: INSULIN GLARGINE UD 100 UNITS/ML SYR SUBCUT SCH ×2 (11:49→20:53)
[2017-11-21] MEDS: QUETIAPINE FUMARATE 50MG TABLET PO SCH ×2 (12:10→20:52)
[2017-11-21 12:24] LABS: BG BASE EXCESS -3.2 mmol/L (-2.0-2.0); BG CARBOXYHEMOGLOBIN 0.5 % (0.5-1.5); BG DEOXYHEMOGLOBIN 1.4 % (0.0-5.0); BG FRACTION INSPIRED OXYGEN 30; BG HCO3 ACT 21.7 mmol/L (22.0-26.0); BG METHEMOGLOBIN 0.2 % (0.0-1.5); BG OXYGEN SATURATION 98.6 % (92.0-98.5); BG OXYHEMOGLOBIN 97.9 % (94.0-97.0); BG PCO2 38.6 mmHg (35.0-45.0); BG PH 7.368 (7.350-7.450); BG PO2 138.7 mmHg (75.0-100.0); BG PRESSURE SUPPORT 8; BG SAMPLE SITE LEFT RADIAL; BG TOTAL HEMOGLOBIN 11.1 g/dL (12.0-18.0); BG VENT MODE VENT - CPAP
[2017-11-21] MEDS ORDERED: FENTANYL CITRATE/PF 1,000 MCG in SODIUM CHLORIDE 0.9% 80 ML IV PRN (12:31)
[2017-11-21] MEDS: HYDRALAZINE 20MG/ML VIAL IV PRN (13:40)
[2017-11-21] MEDS: MORPHINE SULFATE 4 MG/ML CPJ (NOT FOR IM USE) IV PRN ×2 (14:42→23:46)
[2017-11-21] MEDS: CEFTRIAXONE 1 G PREMIX 50 ML IV SCH (16:04)
[2017-11-21] MEDS: LORAZEPAM 2MG/ML CPJ IV PRN ×2 (16:04→20:52)
[2017-11-21] MEDS: LOSARTAN POTASSIUM 50 MG TABLET NG SCH (17:54)
[2017-11-21] MEDS: MONTELUKAST SODIUM 10MG TABLET NG SCH (17:54)
[2017-11-21] MEDS: METHYLPREDNISOLONE SOD SUCC 125 MG/2 ML VIAL IV SCH ×2 (17:55→23:46)
[2017-11-22] VITALS (43 sets, daily range): BP systolic 122–171; BP diastolic 73–123
[2017-11-22] MEDS: IPRATROPIUM/ALBUTEROL 0.5-3(2.5)MG/3ML NEB HHN SCH ×6 (00:07→20:17)
[2017-11-22] MEDS: FENTANYL CITRATE/PF 1,000 MCG in SODIUM CHLORIDE 0.9% 80 ML IV PRN ×2 (01:55→10:14)
[2017-11-22] MEDS: BLOOD SUGAR DIAGNOSTIC STRIP TEST SCH ×7 (04:00→23:51)
[2017-11-22] MEDS: INSULIN LISPRO 100 UNITS/ML SUBCUT SCH ×6 (04:00→20:21)
[2017-11-22] MEDS: LOSARTAN POTASSIUM 50 MG TABLET NG SCH ×2 (05:49→18:47)
[2017-11-22] MEDS: METHYLPREDNISOLONE SOD SUCC 125 MG/2 ML VIAL IV SCH ×3 (05:49→18:47)
[2017-11-22] MEDS: LORAZEPAM 2MG/ML CPJ IV PRN ×3 (05:49→16:35)
[2017-11-22] MEDS: METOCLOPRAMIDE HCL 10MG/2ML VIAL IV SCH ×3 (05:49→18:00)
[2017-11-22] MEDS: AMLODIPINE 2.5MG TABLET NG SCH ×3 (05:50→18:48)
[2017-11-22 07:24] LABS: BG BASE EXCESS -0.7 mmol/L (-2.0-2.0); BG CARBOXYHEMOGLOBIN 0.3 % (0.5-1.5); BG DEOXYHEMOGLOBIN 1.2 % (0.0-5.0); BG FRACTION INSPIRED OXYGEN 30; BG HCO3 ACT 24.7 mmol/L (22.0-26.0); BG METHEMOGLOBIN 0.2 % (0.0-1.5); BG OXYGEN SATURATION 98.8 % (92.0-98.5); BG OXYHEMOGLOBIN 98.3 % (94.0-97.0); BG PCO2 44.4 mmHg (35.0-45.0); BG PH 7.364 (7.350-7.450); BG PO2 145.8 mmHg (75.0-100.0); BG PRESSURE SUPPORT 12; BG SAMPLE SITE LEFT RADIAL; BG TIDAL VOLUME(mL) 550 mL; BG TOTAL HEMOGLOBIN 10.2 g/dL (12.0-18.0); BG VENT MODE VENT - SIMV; BG VENT RATE 10 set
[2017-11-22] MEDS: LORATADINE 10MG TABLET NG SCH (08:33)
[2017-11-22] MEDS: DIPHENHYDRAMINE 50MG/ML VIAL IV PRN ×4 (08:33→20:19)
[2017-11-22] MEDS: FAMOTIDINE 20MG/2ML VIAL IV SCH ×2 (08:33→20:48)
[2017-11-22] MEDS: THEOPHYLLINE ANHYDROUS 80 MG/15 ML 120ML PO SCH ×4 (08:34→20:49)
[2017-11-22] MEDS: QUETIAPINE FUMARATE 50MG TABLET PO SCH ×2 (08:34→20:48)
[2017-11-22] MEDS ORDERED: MIDAZOLAM HCL 100 MG in DEXT 5% WATER 80 ML IV PRN (10:12)
[2017-11-22 11:21] LABS: BASOPHILS % 0.2 % (0.0-2.0); EOSINOPHILS % 0.2 % (0.0-5.0); HEMATOCRIT. 29.6 % (36.0-48.0); HEMOGLOBIN. 9.5 g/dL (12.0-16.0); LYMPHOCYTES % 9.2 % (20.0-50.0); MEAN CORPUSCULAR HEMOGLOBIN 26.4 pg (28.0-32.0); MEAN PLATELET VOLUME 8.6 fl (7.4-10.4); MONOCYTES % 4.2 % (2.0-8.0); NEUTROPHILS % 86.2 % (40.0-76.0); PLATELET 310 x1000/uL (130-400); RED BLOOD CELL COUNT 3.61 mill/uL (4.2-5.4); RED CELL DISTRIBUTION WIDTH 21.7 % (11.6-14.6)
[2017-11-22] MEDS: BUDESONIDE 0.5MG/2ML NEB HHN SCH ×2 (11:39→20:17)
[2017-11-22] MEDS: INSULIN GLARGINE UD 100 UNITS/ML SYR SUBCUT SCH ×2 (11:59→22:14)
[2017-11-22 13:14] LABS: CHLORIDE 109 mEq/L (98-107)
[2017-11-22] MEDS ORDERED: RACEPINEPHRINE 2.25% 0.5ML NEB VIAL HHN PRN (15:15)
[2017-11-22] MEDS: CEFTRIAXONE 1 G PREMIX 50 ML IV SCH (15:29)
[2017-11-22] MEDS: HYDRALAZINE 20MG/ML VIAL IV PRN (16:35)
[2017-11-22] MEDS: MONTELUKAST SODIUM 10MG TABLET NG SCH (16:38)
[2017-11-22] MEDS: MORPHINE SULFATE 4 MG/ML CPJ (NOT FOR IM USE) IV PRN (20:20)
[2017-11-23] VITALS (27 sets, daily range): BP systolic 123–169; BP diastolic 66–110
[2017-11-23] MEDS: METHYLPREDNISOLONE SOD SUCC 125 MG/2 ML VIAL IV SCH ×2 (00:01→06:22)
[2017-11-23] MEDS: AMLODIPINE 2.5MG TABLET NG SCH ×4 (00:02→18:14)
[2017-11-23] MEDS: METOCLOPRAMIDE HCL 10MG/2ML VIAL IV SCH ×2 (00:02→06:22)
[2017-11-23] MEDS: INSULIN LISPRO 100 UNITS/ML SUBCUT SCH ×5 (00:03→20:56)
[2017-11-23] MEDS: ACETAMINOPHEN 650MG/20.3ML UDC NG PRN (00:14)
[2017-11-23] MEDS: IPRATROPIUM/ALBUTEROL 0.5-3(2.5)MG/3ML NEB HHN SCH ×6 (00:25→20:26)
[2017-11-23] MEDS: LOSARTAN POTASSIUM 50 MG TABLET NG SCH ×2 (06:21→18:14)
[2017-11-23 07:41] LABS: HEMATOCRIT. 29.6 % (36.0-48.0); HEMOGLOBIN. 9.6 g/dL (12.0-16.0); MEAN CORPUSCULAR HEMOGLOBIN 26.5 pg (28.0-32.0); MEAN CORPUSCULAR VOLUME 81.9 fL (81.0-99.0); MEAN PLATELET VOLUME 8.7 fl (7.4-10.4); PLATELET 329 x1000/uL (130-400); RED BLOOD CELL COUNT 3.62 mill/uL (4.2-5.4); RED CELL DISTRIBUTION WIDTH 21.7 % (11.6-14.6)
[2017-11-23] MEDS: BUDESONIDE 0.5MG/2ML NEB HHN SCH ×2 (07:50→20:26)
[2017-11-23 07:54] LABS: BG BASE EXCESS -3.2 mmol/L (-2.0-2.0); BG CARBOXYHEMOGLOBIN 0.3 % (0.5-1.5); BG FRACTION INSPIRED OXYGEN 35; BG HCO3 ACT 21.1 mmol/L (22.0-26.0); BG METHEMOGLOBIN 0.3 % (0.0-1.5); BG OXYHEMOGLOBIN 98.4 % (94.0-97.0); BG PCO2 34.8 mmHg (35.0-45.0); BG PO2 165.9 mmHg (75.0-100.0); BG SAMPLE SITE LEFT RADIAL; BG TOTAL HEMOGLOBIN 10.1 g/dL (12.0-18.0); BG VENT MODE MASK - AEROSOL
[2017-11-23] MEDS: BLOOD SUGAR DIAGNOSTIC STRIP TEST SCH ×3 (08:00→20:46)
[2017-11-23] MEDS: FAMOTIDINE 20MG/2ML VIAL IV SCH ×2 (09:00→20:54)
[2017-11-23] MEDS: QUETIAPINE FUMARATE 50MG TABLET PO SCH ×2 (09:00→20:54)
[2017-11-23] MEDS: LORATADINE 10MG TABLET NG SCH (09:00)
[2017-11-23] MEDS: INSULIN GLARGINE UD 100 UNITS/ML SYR SUBCUT SCH ×2 (09:01→22:18)
[2017-11-23] MEDS: THEOPHYLLINE ANHYDROUS 80 MG/15 ML 120ML PO SCH ×4 (09:02→20:54)
[2017-11-23] MEDS ORDERED: BLOOD SUGAR DIAGNOSTIC STRIP TEST SCH (12:00)
[2017-11-23] MEDS ORDERED: INSULIN LISPRO 100 UNITS/ML SUBCUT SCH (12:00)
[2017-11-23 14:17] LABS: PLATELET ESTIMATE NORMAL
[2017-11-23] MEDS: HYDRALAZINE 20MG/ML VIAL IV PRN (14:22)
[2017-11-23] MEDS: CEFTRIAXONE 1 G PREMIX 50 ML IV SCH (14:22)
[2017-11-23] MEDS: METHYLPREDNISOLONE SOD SUCC 40 MG/ML VIAL IV SCH ×2 (14:22→22:18)
[2017-11-23] MEDS: MONTELUKAST SODIUM 10MG TABLET NG SCH (18:14)
[2017-11-24] MEDS: IPRATROPIUM/ALBUTEROL 0.5-3(2.5)MG/3ML NEB HHN SCH ×6 (00:39→20:00)
[2017-11-24] MEDS: AMLODIPINE 2.5MG TABLET NG SCH ×4 (02:47→18:20)
[2017-11-24 04:00] VITALS: BP 138/82
[2017-11-24] MEDS: BLOOD SUGAR DIAGNOSTIC STRIP TEST SCH ×4 (06:37→20:36)
[2017-11-24] MEDS: METHYLPREDNISOLONE SOD SUCC 40 MG/ML VIAL IV SCH (06:41)
[2017-11-24] MEDS: LOSARTAN POTASSIUM 50 MG TABLET NG SCH ×2 (06:43→16:54)
[2017-11-24] MEDS: INSULIN LISPRO 100 UNITS/ML SUBCUT SCH ×4 (07:17→21:05)
[2017-11-24 08:00] VITALS: BP 153/88
[2017-11-24] MEDS: LORATADINE 10MG TABLET NG SCH (08:36)
[2017-11-24] MEDS: QUETIAPINE FUMARATE 50MG TABLET PO SCH ×2 (08:36→21:02)
[2017-11-24] MEDS: FAMOTIDINE 20MG/2ML VIAL IV SCH ×2 (08:36→21:02)
[2017-11-24] MEDS: THEOPHYLLINE ANHYDROUS 80 MG/15 ML 120ML PO SCH ×4 (08:37→21:00)
[2017-11-24] MEDS: INSULIN GLARGINE UD 100 UNITS/ML SYR SUBCUT SCH ×2 (09:28→21:05)
[2017-11-24 12:06] VITALS: BP 127/79
[2017-11-24] MEDS: BUDESONIDE 0.5MG/2ML NEB HHN SCH ×2 (12:17→20:00)
[2017-11-24] MEDS: CEFTRIAXONE 1 G PREMIX 50 ML IV SCH (13:51)
[2017-11-24] MEDS: PREDNISONE 20MG TABLET PO SCH (16:54)
[2017-11-24] MEDS: MONTELUKAST SODIUM 10MG TABLET NG SCH (16:54)
[2017-11-24 20:00] VITALS: BP 115/74
[2017-11-24] MEDS ORDERED: LEVO500T2 MT (20:14)
[2017-11-25] VITALS (8 sets, daily range): BP systolic 118–169; BP diastolic 73–98
[2017-11-25] MEDS: IPRATROPIUM/ALBUTEROL 0.5-3(2.5)MG/3ML NEB HHN SCH ×6 (00:16→19:55)
[2017-11-25] MEDS: AMLODIPINE 2.5MG TABLET NG SCH ×4 (00:16→18:35)
[2017-11-25] MEDS: LOSARTAN POTASSIUM 50 MG TABLET NG SCH ×2 (05:09→18:34)
[2017-11-25] MEDS: INSULIN LISPRO 100 UNITS/ML SUBCUT SCH ×4 (06:16→20:50)
[2017-11-25] MEDS: BLOOD SUGAR DIAGNOSTIC STRIP TEST SCH ×4 (06:16→20:07)
[2017-11-25] MEDS: BUDESONIDE 0.5MG/2ML NEB HHN SCH (08:48)
[2017-11-25] MEDS: FAMOTIDINE 20MG/2ML VIAL IV SCH ×2 (09:00→20:38)
[2017-11-25] MEDS: QUETIAPINE FUMARATE 50MG TABLET PO SCH ×2 (09:00→20:38)
[2017-11-25] MEDS: PREDNISONE 20MG TABLET PO SCH ×2 (09:00→17:10)
[2017-11-25] MEDS: LORATADINE 10MG TABLET NG SCH (09:00)
[2017-11-25] MEDS: THEOPHYLLINE ANHYDROUS 80 MG/15 ML 120ML PO SCH ×3 (09:09→17:11)
[2017-11-25] MEDS: INSULIN GLARGINE UD 100 UNITS/ML SYR SUBCUT SCH ×2 (09:50→21:34)
[2017-11-25] MEDS: HYDRALAZINE 20MG/ML VIAL IV PRN (16:14)
[2017-11-25] MEDS: MONTELUKAST SODIUM 10MG TABLET NG SCH (17:10)
[2017-11-26] VITALS: BP 158/94
[2017-11-26] MEDS: IPRATROPIUM/ALBUTEROL 0.5-3(2.5)MG/3ML NEB HHN SCH ×2 (00:12→04:10)
[2017-11-26] MEDS: AMLODIPINE 2.5MG TABLET NG SCH ×2 (00:41→05:16)
[2017-11-26] MEDS: THEOPHYLLINE ANHYDROUS 80 MG/15 ML 120ML PO SCH ×2 (01:40→09:11)
[2017-11-26 04:00] VITALS: BP 162/98
[2017-11-26] MEDS: LOSARTAN POTASSIUM 50 MG TABLET NG SCH (05:16)
[2017-11-26] MEDS: BLOOD SUGAR DIAGNOSTIC STRIP TEST SCH (07:10)
[2017-11-26] MEDS: INSULIN LISPRO 100 UNITS/ML SUBCUT SCH (07:40)
[2017-11-26 08:00] VITALS: BP 169/93
[2017-11-26] MEDS: FAMOTIDINE 20MG/2ML VIAL IV SCH (09:00)
[2017-11-26] MEDS: LORATADINE 10MG TABLET NG SCH (09:06)
[2017-11-26] MEDS: QUETIAPINE FUMARATE 50MG TABLET PO SCH (09:06)
[2017-11-26] MEDS: PREDNISONE 20MG TABLET PO SCH (09:06)
== END 2017-11-26 09:44 | disposition home or self-care (01) | DRG 870 ==
LOC: ER 19:14 → CVICU 11-16 01:33 → EDBEDREQTM 11-16 01:35 → EDBEDREQ 11-16 01:35 → EDBEDREQSVC 11-16 01:35 → ENRESERV 11-16 06:51 → 8WST 11-24 00:30
PROVIDERS: ADMIT Internal Medicine; ATTEND Internal Medicine
PROC: 5A1955Z Respiratory Ventilation, Greater than 96 Consecutive Hours (ICD-10-PCS; principal; 2017-11-16)
PROC: 0BH17EZ Insertion of Endotracheal Airway into Trachea, Via Natural or Artificial Opening (ICD-10-PCS; 2017-11-16)
PROC: 30233N1 Transfusion of Nonautologous Red Blood Cells into Peripheral Vein, Percutaneous Approach (ICD-10-PCS; 2017-11-19)
PROC: 5A09357 Assistance with Respiratory Ventilation, Less than 24 Consecutive Hours, Continuous Positive Airway Pressure (ICD-10-PCS; 2017-11-22)
PROC: 5A09357 Assistance with Respiratory Ventilation, Less than 24 Consecutive Hours, Continuous Positive Airway Pressure (ICD-10-PCS; 2017-11-24)
PROC: 5A09357 Assistance with Respiratory Ventilation, Less than 24 Consecutive Hours, Continuous Positive Airway Pressure (ICD-10-PCS; 2017-11-26)
DX: A41.59 Other Gram-negative sepsis (principal); J96.00 Acute respiratory failure, unspecified whether with hypoxia or hypercapnia; I50.33 Acute on chronic diastolic (congestive) heart failure; E43 Unspecified severe protein-calorie malnutrition; J45.901 Unspecified asthma with (acute) exacerbation; K50.90 Crohn's disease, unspecified, without complications; E87.0 Hyperosmolality and hypernatremia; E11.65 Type 2 diabetes mellitus with hyperglycemia; I11.0 Hypertensive heart disease with heart failure; G47.33 Obstructive sleep apnea (adult) (pediatric); L83 Acanthosis nigricans; M48.00 Spinal stenosis, site unspecified; J44.9 Chronic obstructive pulmonary disease, unspecified; B96.1 Klebsiella pneumoniae [K. pneumoniae] as the cause of diseases classified elsewhere; E66.9 Obesity, unspecified; E78.1 Pure hyperglyceridemia; F32.9 Major depressive disorder, single episode, unspecified; Z85.3 Personal history of malignant neoplasm of breast; G43.909 Migraine, unspecified, not intractable, without status migrainosus; D63.8 Anemia in other chronic diseases classified elsewhere; I45.10 Unspecified right bundle-branch block; J38.4 Edema of larynx; M06.9 Rheumatoid arthritis, unspecified; Z85.841 Personal history of malignant neoplasm of brain; J32.9 Chronic sinusitis, unspecified; M10.9 Gout, unspecified; Z78.1 Physical restraint status; Z79.4 Long term (current) use of insulin; Z79.899 Other long term (current) drug therapy; Z82.49 Family history of ischemic heart disease and other diseases of the circulatory system; Z82.5 Family history of asthma and other chronic lower respiratory diseases; Z83.3 Family history of diabetes mellitus; I25.2 Old myocardial infarction; Z87.01 Personal history of pneumonia (recurrent); Z86.73 Personal history of transient ischemic attack (TIA), and cerebral infarction without residual deficits; Z92.21 Personal history of antineoplastic chemotherapy; Z68.37 Body mass index [BMI] 37.0-37.9, adult; Z91.011 Allergy to milk products; Z91.013 Allergy to seafood; Z91.048 Other nonmedicinal substance allergy status; Z90.10 Acquired absence of unspecified breast and nipple
CPT/HCPCS: 36415; 36600; 51702; 71045; 80048; 80053; 80061; 80202; 81003; 82270; 82375; 82805; 82962; 83036; 83605; 83690; 83735; 83880; 84100; 84478; 84484; 85025; 85610; 86850; 86900; 86920; 87040; 87070; 87076; 87077; 87086; 87186; 87804; 92610; 93005; 93306; 93970; 94002; 94003; 94640; 94660; 96365; 96366; 96368; 96375; 97116; 97162; 97530; 99285; A4216; A6261; J0330; J0360; J0696; J1200; J1815; J2060; J2250; J2270; J2543; J2704; J2765; J2920; J2930; J3010; J3370; J3475; J3480; J3490; J7030; J7040; J7050; J7060; J7512; J7611; J7620; J7626; P9016